=== PATIENT | male | born 1945 | race Caucasian/White ===

== ENCOUNTER 2018-01-29 05:34 | Day surgery (SDC) | payer OTHER ==
[~2018-01-29] VITALS: Ht 175.3 cm; Wt 90.7 kg
--- NOTE | ~2018-01-29 | EKG ---
[address] [place] [address] ELECTROCARDIOGRAM REPORT Name: LAYO RUSH Room #: 150-5 [facility].#: [id number] Admission: 01/29/18 Attend Phys: Abiel Herrmann MD Discharge: Date of : 43 Report #: [id number] THIS REPORT FOR: //name// [facility] Test Date: 2018-01-29 Test Time: 12:17:46 Pat Name: LAYO RUSH Department: Room: 150 5 Gender: M [employer] Clerk: FREDA : 1945 Requested By: Abiel Herrmann Order Number: [id number] MD: Toro Grande Measurements Intervals [place] Rate: 68 P: 12 MO: 206 QRS: -20 QRSD: 103 T: -2 QT: 414 QTc: 441 Interpretive Statements Sinus rhythm Atrial premature complexes Poor R wave progression No previous ECG available for comparison Electronically Signed On 01-30-2018 12:59:24 DOOR FURRING INSTALLER by Toro Grande [email or web address] <ELECTRONICALLY SIGNED> By: Toro Grande MD, [facility] 01/30/18 1259 1217 1217 Toro Grande MD, FACC /EPI
--- NOTE | ~2018-01-29 | O ---
[facility] [place] [address] OPERATIVE REPORT Name: LAYO RUSH Room #: DEP [facility]..#: [id number] Admission: 01/29/18 Attend Phys: Abiel Herrmann MD Discharge: 01/29/18 Date of : 43 Report #: [id number] THIS REPORT FOR: //name// CC: Ama Herrmann DATE OF SERVICE: 01/29/2018 PATIENT OF: Dr. Abiel Herrmann and Dr. Ama Marquez. PREOPERATIVE DIAGNOSIS: Incarcerated ventral incisional hernia. POSTOPERATIVE DIAGNOSIS: Incarcerated ventral incisional hernia. PROCEDURE: Repair of an incarcerated ventral incisional hernia with small Ventralex mesh patch SURGEON: Abiel Herrmann MD ANESTHESIA: Local IV sedation. DESCRIPTION OF PROCEDURE: The patient was brought to the operating room and placed on operative table in the supine position. Sequential compression devices were in place for DVT prophylaxis. There was no indication for preoperative antibiotics. The patient underwent IV sedation, the abdomen was then prepped and draped in a sterile fashion. Skin and subcutaneous tissue around the umbilicus was infiltrated with 0.5% Marcaine and 1% Xylocaine in a 1:1 mixture. An infraumbilical transverse skin incision was then performed using #15 scalpel blade. Hemostasis obtained using electrocautery. Dissection was carried down through the subcutaneous tissue and the previous umbilical hernia repair fascia appeared to be intact along with the sutures were in place. I then dissected above the umbilicus through this incision and above superior to the umbilicus and to the right of the midline, there was 2 incarcerated hernia defects with a small bridge of fascia between the 2. I dissected each free, opened the sac and found some incarcerated omentum, which was dissected free and reduced back into the abdomen. I transected the bridge in between these two defects and made it one defect. It was large enough that I could just place my index finger through the opening and swept away any scar tissue and adhesed omentum to the anterior abdominal wall. I then placed a small Ventralex hernia patch intraabdominally and secured transfascially circumferentially with interrupted horizontal mattress 0 PDS sutures. The fascia was then closed over the mesh using interrupted [id number] 0 PDS sutures. The tails on the mesh were then cut and secured superiorly and inferiorly with simple interrupted 2-0 Vicryl sutures. The deep and superficial subcutaneous tissue was then [address] [address] OPERATIVE REPORT Name: LAYO RUSH DANIEL Room #: DEP [facility]#: [id number] Admission: 01/29/18 Attend Phys: Abiel Herrmann MD Discharge: 01/29/18 Date of : 43 Report #: [id number] reapproximated using simple interrupted 2-0 chromic sutures and the skin then closed with a running 4-0 subcuticular Vicryl stitch. The wound was then dressed with Dermabond, Telfa, 4 x 4 gauze, sponge and tape. The patient was then taken to the recovery room awake, alert and in good condition. Estimated blood loss was approximately 10 mL and the patient tolerated the procedure well. All sponge, lap and instrument counts were correct times 2. <ELECTRONICALLY SIGNED> By: Abiel Herrmann MD 02/17/18 1333 1539 1619 Abiel Herrmann MD /nt
--- NOTE | ~2018-01-29 | H ---
[facility] [address] [address] HISTORY AND PHYSICAL Name: LAYO RUSH Room #: 150-5 [facility] M.R.#: [id number] Admission: 01/29/18 Attend Phys: Abiel Herrmann MD Discharge: Date of : 43 Report #: [id number] THIS REPORT FOR: //name// CC: Ama Herrmann DATE OF SERVICE: 01/29/[address] Ama Marquez, Dr. Abiel Herrmann. DATE OF ADMISSION AND SURGERY: 01/29/2018 CHIEF COMPLAINT: Abdominal bulge. HISTORY OF PRESENT ILLNESS: The patient is a 72-year-old white male who for about a year noticed an increasing bulge above and to the right of the umbilicus. For several weeks, he had been having some discomfort in that area. He had an umbilical hernia repair over 10 years ago at [facility]. He recently has been having some increasing constipation, but he denied any black tarry stools, blood in the stools, diarrhea or pencil thin stools. He denies any recent changes in bladder habits. He has essentially normal colonoscopy about 5 years [address] He saw Dr. Marquez who recommended surgical consultation. PAST MEDICAL HISTORY: Arthritis, skin cancer, diabetes, hypertension, hypercholesterolemia. PAST SURGICAL HISTORY: Left total knee surgery in 2010, umbilical hernia repair 10 years ago. MEDICATIONS: Tamsulosin 0.4 mg p.o. every day, doxycycline 50 mg p.o. every day, multivitamin, metformin 500 mg p.o. b.i.d., gemfibrozil 600 mg p.o. b.i.d., fish oil, losartan 50 mg p.o. every day, aspirin 81 mg p.o. every day. ALLERGIES: No known drug allergies. FAMILY HISTORY: Noncontributory. SOCIAL HISTORY: , quit smoking in 1972. Drinks alcohol occasionally. REVIEW OF SYSTEMS: Pertinent positives as above. Full review of systems otherwise negative. PHYSICAL EXAMINATION: GENERAL: Well-developed, well-nourished white male in no acute distress. [facility] [address] [place] [address] HISTORY AND PHYSICAL Name: LAYO RUSH Room #: 150-5 [facility]#: [id number] Admission: 01/29/18 Attend Phys: Abiel Herrmann MD Discharge: Date of : 43 Report #: [id number] VITAL SIGNS: Stable. He is afebrile. Height is 69 inches, weight is 200 pounds, BMI of 29.5. HEENT: Sclerae are nonicteric. Mucous membranes moist and pink. NECK: There is no adenopathy. LUNGS: Clear to auscultation bilaterally. Normal excursion. CARDIOVASCULAR: Regular rate and rhythm. No murmurs, S3, S4. Normal PMI. ABDOMEN: Soft, flat, nontender. There is a healed infraumbilical incision scar. There is a diastasis recti. Superior into the right of the midline there is a palpable partially reducible ventral epigastric hernia. No other organomegaly or masses. No other abdominal incision scars. EXTREMITIES: No clubbing, cyanosis or edema. NEUROLOGIC: Intact with a clear mental status. IMPRESSION: A 72-year-old white male with a partially incarcerated ventral epigastric hernia. I fully discussed with the patient and his the diagnosis, prognosis, and treatment options. I have recommended ventral epigastric hernia repair. They state understanding and agreed to post-surgery. PLAN: We will perform a ventral epigastric hernia repair with possible mesh under local IV sedation as an outpatient at [facility]. The procedures, risks, benefits and possible complications including possible need for mesh were fully discussed with the patient and his . They state they understand and agree to proposed surgery. <ELECTRONICALLY SIGNED> By: Abiel Herrmann MD 01/29/18 1551 1303 1323 Abiel Herrmann MD /nt
[~2018-01-29 05:34] MED LIST: ASPIR 8181 MG PO; DOXYCYCLINE MON50 M1 PO; FLOMAX0.4 MG PO; FLONASE 0.05%50 MCG NASAL; GEMFIBROZIL 60600 M1 PO; GLUCOPHAGE XR750 MG PO; LOSARTAN POTASS50 MG PO; MULTI VITAMIN1 EACH PO; OMEGA 3 1,0001 EACH PO
[2018-01-29 12:12] VITALS: BP 138/79
[2018-01-29] MEDS ORDERED: NORCO 5-325 TA1 EACH PO (15:45)
== END 2018-01-29 17:00 | disposition home or self-care (01) ==
LOC: TBA 05:34 → OR 05:34
DX: K43.0 Incisional hernia with obstruction, without gangrene (principal); E11.9 Type 2 diabetes mellitus without complications; I10 Essential (primary) hypertension; Z85.828 Personal history of other malignant neoplasm of skin; E78.00 Pure hypercholesterolemia, unspecified; Z98.890 Other specified postprocedural states; Z79.899 Other long term (current) drug therapy; Z87.891 Personal history of nicotine dependence; Z79.82 Long term (current) use of aspirin; Z79.891 Long term (current) use of opiate analgesic
CPT/HCPCS: 50101; 50119; 50386; 50417; 54118; 56524; 56525; 56526; 62110; 62850; 70005